=== PATIENT | female | born 1995 ===

== ENCOUNTER 2019-12-11 23:33 | Inpatient (IN) | payer MEDICAID, SELFPAY ==
[2019-12-11 23:05] VITALS: BMI 24.1
[2019-12-11 23:13] LABS: Actim Prom Positive
[2019-12-11 23:32] LABS: Basophils % 0.3 %; Eosinophils # 0.1 10^3/uL (0.0-0.8); Eosinophils % 0.6 %; Hematocrit 35.3 % (37.0-47.0); Lymphocytes % 17.6 %; Mean Corpuscular Hemoglobin 29.1 pg (28.0-34.0); Mean Corpuscular Volume 85.7 fL (81-99); Mean Platelet Volume 9.5 fL (7.4-10.4); Monocytes # 0.7 10^3/uL (0.2-0.9); Monocytes % 6.2 %; Neutrophils # 8.7 10^3/uL (1.8-7.7); Neutrophils % 74.9 %; Nucleated Red Blood Cells % 0 %; Platelet Count 265 10^3/cmm (130-400); Red Blood Count 4.12 10^6/uL (4.1-5.3); Red Cell Distribution Width 12.3 % (12.1-15.1); White Blood Count 11.6 10^3/uL (4.0-10.0)
[2019-12-11 23:37] VITALS: BP 0/0
[2019-12-11] MEDS: dextrose 5%-lactated ringers 1,000 ML 125 ML IV (23:37)
[2019-12-11] MEDS: betamethasone susp 6 mg/mL 5 mL 12 MG IM (23:37)
[2019-12-11 23:38] VITALS: BP 121/80; PULSE 91
[2019-12-11] MEDS: ampicillin 2,000 MG in sodium chloride 0.9% (plus) 50 ML 100 MG IV (23:38)
[2019-12-11] MEDS: NIFEdipine 10 mg Capsule 20 MG PO (23:44)
[2019-12-11 23:54] VITALS: BP 115/78; PULSE 77
[2019-12-12] VITALS (33 sets, daily range): BP systolic 0–120; BP diastolic 0–79; PULSE 76–104; RESP 14–18; TEMP 36.7–36.9
--- NOTE | 2019-12-12 00:27 | P.HP_ITS ---
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 At 8:00 PM the patient had a small gush of clear fluid. She then started having what she presumed to be [place] contractions, then about an hour and a half later had some bloody discharge. She had no fever. She had no other symptoms whatsoever. She presented to the hospital for further evaluation. Her has been otherwise unremarkable. She was positive for trichomonas in her first trimester. That was treated with Flagyl. She also has a history of labors with a previous with a 32-week delivery. 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 She did miss several doses. Present Details : 3 Para: 2 Labs Rubella: Immune RPR: Negative GBS: Unknown Review of Systems General: Reports: 10 or more systems reviewed and unremarkable except in HPI and below Const: Reports: fatigue; Denies: fever Eyes: Denies: change in vision Card: Denies: chest pain : Denies: difficulty urinating or painful urination Musc: Reports: back pain Brady/Lymph: Denies: easy bruising Medications/Allergies Home Medications Medication Instructions Recorded Confirmed Last Taken Type acetaminophen [Tylenol] 325 mg PO QID PRN 12/11/19 12/11/19 12/11/19 20:00 History Allergies Allergy/AdvReac Type Severity Reaction Status Date / Time No Known Drug Allergies Allergy Unknown Verified 12/11/19 23:55 Vitals/I&O/Wt Last Vital Signs Pulse 90 12/12/19 00:20 BP 109/68 12/12/19 00:20 Weight last 48 hrs Weight 145 lb Weight 145 lb Physical Exam Const: COMMON NORMALS: oriented x3 and alert HENMT: COMMON NORMALS: moist oral mucous membranes HEAD & SCALP: normal to inspection Chest: COMMONS NORMALS: inspection of chest normal Resp: COMMON NORMALS: clear to auscultation bilaterally AUSCULTATION: clear to auscultation bilaterally Cardio: COMMON NORMALS: regular rate and regular rhythm RATE: regular rate RHYTHM: regular rhythm GI: INSPECTION: Yes normal to inspection and Yes other (Gravid) Extremity: COMMON NORMALS: normal to inspection GENERAL: Yes edema (Trace) Neuro: COMMON NORMALS: oriented x3, moves all extremities and no sensory deficits noted SENSORIUM/ORIENTATION: Yes alert Psych: COMMON NORMALS: mental status grossly normal Skin: COMMON NORMALS: no rashes or lesions noted GENERAL SKIN EXAM: no rashes or lesions noted Data : 12/11/19 23:27 Other Labs: Patient's glucose screen was 115 her GC and Chlamydia were negative. Her initial urinalysis was positive for trichomonas which was treated with Flagyl. The patient was found to have an abnormal Pap smear with ASCUS. She is also HPV positive. She declined a colposcopy during her . Her drug screen was negative. Her HIV test was also negative. Her hepatitis B and hepatitis C test were both negative. Her rubella test did demonstrate antibodies. Her RPR was negative her blood type is O+. A&P Assessment and plan (1) 33 weeks gestation of : The patient was checked and found to be 3 cm dilated and about 85% effaced. She was found to be active and PROM positive. She is having contractions about every 3 to 4 minutes. She was placed on ampicillin. She was given betamethasone 12 mg. She is also placed on nifedipine 20 mg. We will continue to give her future nifedipine doses at 10 mg every 3 hours. We will try and keep her for 48 hours. If her contractions stopped we may cons ider transfer. Dr. Quesada has been notified that we may have a baby Status: Acute Code(s): Z3A.33 - 33 weeks gestation of (2) Spontaneous rupture of membranes: Status: Acute (3) Uterine contractions: Status: Acute (4) labor: Status: Acute Code(s): O60.00 - labor without delivery, unspecified trimester (5) Premature rupture of membranes: Status: Acute Code(s): O42.90 - Premature rupture of membranes, unspecified as to length of time between rupture and onset of labor, unspecified weeks of gestation Attestations Medical Necessity Statement*: Routine labor and care. The patient may be transferred to depending on her circumstances. Coding Level of Care Code Acute Perfect Bind Machine Operator for Edelmira Downs Diagnoses 33 weeks gestation of Z3A.33 Spontaneous rupture of membranes Uterine contractions labor O60.00 Premature rupture of membranes O42.90
[2019-12-12] MEDS: NIFEdipine 10 mg Capsule PO ×2 (01:18→04:30)
[2019-12-12 01:30] LABS: Add Urine Microscopic? YES; Bacteria Urine TRACE; Bilirubin Urine Neg (NEGATIVE); Blood Urine 3+ (Negative); Glucose Urine UA Norm (Normal); Ketones Urine Negative (Negative); Leukocyte Esterase Urine Negative (Negative); Nitrate Urine Negative (Negative); Protein Urine Neg (Negative); RBC Urine 0-4 /hpf (0-2); Squamous Epithelial Cell Urine 0-4 (0-5); Urine Appearance Clear (CLEAR); Urine Color Yellow (Yellow); Urobilinogen Urine Norm (Negative); WBC Urine 0-4 /hpf (0-5); pH Urine 7 (5-7)
[2019-12-12] MEDS: ampicillin 1,000 MG in sodium chloride 0.9% (plus) 50 ML 100 MG IV (03:39)
--- NOTE | 2019-12-12 03:55 | P.DS_ITS ---
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 Date of Admission: 12/11/19 23:33 Date of Discharge: 12/12/19 Attending Provider at Admission: Bashir Ramos MD Attending Provider at Discharge: Bashir Ramos MD Diagnoses at Discharge Discharge Diagnosis (1) 33 weeks gestation of : Status: Acute (2) Spontaneous rupture of membranes: Status: Acute (3) Uterine contractions: Status: Acute (4) labor: Status: Acute (5) Premature rupture of membranes: Status: Acute Reason for Visit Reason for Visit: Reason For Visit: contractions/ Hospital Course Hospital Course: The patient presented to the hospital complaining of a gush of fluid as well as vaginal bleeding. She was checked and found to be 3 cm dilated 80% effaced with a small amount of blood in the vaginal vault. She was found to be acti PROM positive. She was noted to be tavon about every 5 minutes. She was placed on betamethasone, ampicillin, and nifedipine. She was given an initial dose of 20 mg of nifedipine with 10 mg of nifedipine every 3 hours thereafter. She continued to have contractions about every 5 minutes. She was checked again about 5 hours after admission and found to have no cervical change. As result, I contacted [facility] where I spoke with Dr. Chacko who agreed except the patient. Physical Exam Const: COMMON NORMALS: no apparent distress and oriented x3 GENERAL APPEARANCE: cooperative, comfortable and well developed HENMT: COMMON NORMALS: normocephalic and moist oral mucous membranes HEAD & SCALP: normocephalic Chest: COMMONS NORMALS: inspection of chest normal Resp: COMMON NORMALS: normal respiratory effort and clear to auscultation bilaterally AUSCULTATION: clear to auscultation bilaterally Cardio: COMMON NORMALS: regular rate, regular rhythm, no gallops, no murmurs and no rub RATE: regular rate RHYTHM: regular rhythm Extremity: COMMON NORMALS: normal to inspection Neuro: COMMON NORMALS: oriented x3 and no focal motor deficits Skin: COMMON NORMALS: no rashes or lesions noted GENERAL SKIN EXAM: no rashes or lesions noted Discharge Data Data Completed and Pending: Labs from last 24 hours 12/12/19 12/11/19 12/11/19 01:00 23:27 23:00 WBC 11.6 H RBC 4.12 Hgb 12.0 Hct 35.3 L MCV 85.7 MCH 29.1 MCHC 34.0 RDW 12.3 Plt Count 265 MPV 9.5 Neut % (Auto) 74.9 Lymph % (Auto) 17.6 [place] % (Auto) 6.2 Eos % (Auto) 0.6 Baso % (Auto) 0.3 Neut # (Auto) 8.7 H Lymph # (Auto) 2.0 [place] # (Auto) 0.7 Eos # (Auto) 0.1 Baso # (Auto) 0.0 Nucleated RBC % (a uto) 0 Nucleated RBCs # 0.0 Insulin-like GF I Positive Urine Color Yellow Urine Appearance Clear Urine pH 7 Ur Specific Gravit y 1.010 Urine Protein Neg Urine Glucose (UA) Norm Urine Ketones Negative Urine Blood 3+ H Urine Nitrate Negative Urine Bilirubin Neg Urine Urobilinogen Norm Ur Leukocyte Bina ase Negative Urine RBC 0-4 H Urine WBC 0-4 H Ur Squamous Epith Cells 0-4 H Urine Bacteria Trace Vitals: Last Vital Signs Temp 98.4 F 12/12/19 02:03 Pulse 90 12/12/19 03:51 Resp 14 12/12/19 02:03 BP 118/71 12/12/19 03:51 Discharge Plan Discharge Patient Disposition: Xfer Other Condition: Stable Prescriptions: No Action Tylenol 325 mg Capsule 325 mg PO QID PRN (Reason: Pain) RF: 0 Discharge Orders: Discharge Order (Routine); Ordered 12/12/19 Ordered By: Bashir Ramos Discharge Diet: As Directed Discharge Activity: Bedrest Activity Restrictions/Additional Instructions: Transfer to [facility] labor and delivery under care of Dr. 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
== END 2019-12-12 05:30 | disposition short-term general hospital (02) | DRG 832 ==
LOC: OBGYN 23:35
PROVIDERS: Admitting Provider Family Medicine; Family Provider Family Medicine; Visit Provider Family Medicine
DX: O42.913 Preterm premature rupture of membranes, unspecified as to length of time between rupture and onset of labor, third trimester (principal); O98.32 Other infections with a predominantly sexual mode of transmission complicating childbirth; Z3A.33 33 weeks gestation of pregnancy; A63.0 Anogenital (venereal) warts
CPT/HCPCS: 12345; 36415; 59025; 81001; 84112; 85025; 96372; 99211; J0290; J0702

== ENCOUNTER 2023-10-24 17:37 | Outpatient (CLI) | payer MEDICAID, SELFPAY ==
[2023-10-24 17:51] VITALS: RESP 16; BMI 27.4
[2023-10-24] MEDS: lactated ringers 1,000 ML 999 ML IV (19:00)
[2023-10-24] MEDS: ondansetron 2 mg/ML SDV 2 mL 4 MG IVP (19:01)
[2023-10-24 19:30] LABS: Urine Color Yellow (Yellow)
[2023-10-24 19:31] LABS: Bilirubin Urine Neg (Negative); Blood Urine Neg (Negative); Glucose Urine UA Norm (Normal); Ketones Urine 1+ (Negative); Leukocyte Esterase Urine Negative (Negative); Nitrate Urine Negative (Negative); Protein Urine Trace (Negative); Urine Appearance Clear (CLEAR); Urobilinogen Urine 1 mg/dL (Negative); pH Urine 7 (5-7)
[2023-10-24 19:33] LABS: Add Urine Culture? No; Bacteria Urine TRACE /hpf; Mucus Urine TRACE /hpf; Squamous Epithelial Cell Urine 0-4 /hpf (0-5); WBC Urine RARE /hpf (0-5)
[2023-10-24 20:00] VITALS: BP 109/67; PULSE 81; RESP 18; TEMP 36.6
[2023-10-24 20:05] VITALS: BP 109/67; PULSE 81; RESP 18; TEMP 36.6
== END 2023-10-24 20:09 | disposition home or self-care (01) ==
LOC: OPOB 17:39 → OBGYN 17:40
PROVIDERS: Visit Provider Family Medicine
DX: O21.9 Vomiting of pregnancy, unspecified (principal); Z3A.00 Weeks of gestation of pregnancy not specified; R10.9 Unspecified abdominal pain
CPT/HCPCS: 59025; 81001; 96374; 99211; J2405; J7120

== ENCOUNTER 2023-11-18 14:38 | Outpatient (CLI) | payer MEDICAID, SELFPAY ==
[2023-11-18] VITALS (10 sets, daily range): BP systolic 110–126; BP diastolic 70–83; PULSE 76–106; BMI 28.4
[2023-11-18 16:14] LABS: Bilirubin Urine Neg (Negative); Blood Urine 2+ (Negative); Glucose Urine UA 1+ (Normal); Ketones Urine Negative (Negative); Leukocyte Esterase Urine Negative (Negative); Nitrate Urine Negative (Negative); Protein Urine Neg (Negative); RBC Urine 0-4 /hpf (0-2); Urine Appearance Clear (CLEAR); Urine Color Yellow (Yellow); Urobilinogen Urine Norm (Negative); pH Urine 7 (5-7)
[2023-11-18 16:15] LABS: Add Urine Culture? No; Bacteria Urine TRACE /hpf; Squamous Epithelial Cell Urine 0-4 /hpf (0-5)
== END 2023-11-18 17:23 | disposition home or self-care (01) ==
LOC: OPOB 14:45 → OBGYN 14:46
PROVIDERS: Visit Provider Family Medicine
DX: O26.899 Other specified pregnancy related conditions, unspecified trimester (principal); Z3A.00 Weeks of gestation of pregnancy not specified; R10.9 Unspecified abdominal pain; N89.8 Other specified noninflammatory disorders of vagina
CPT/HCPCS: 59025; 81001; 99211

== ENCOUNTER 2023-11-19 07:27 | Inpatient (IN) | payer MEDICAID, SELFPAY ==
[2023-11-19] VITALS (31 sets, daily range): BP systolic 101–141; BP diastolic 60–108; PULSE 54–187; RESP 15–18; TEMP 36.3–36.7; O2SAT 97–99; BMI 28.6
[2023-11-19 07:28] LABS: Nitrazine Paper, PH Inconclusive
[2023-11-19 07:33] LABS: Actim Prom Positive
[2023-11-19] MEDS: betamethasone susp 6 mg/mL 1 mL (per mL) 12 MG IM (07:49)
[2023-11-19] MEDS: dextrose 5%-lactated ringers 1,000 ML 125 ML IV (07:52)
[2023-11-19] MEDS: ampicillin 2,000 MG in sodium chloride 0.9% (plus) 50 ML 100 MG IV (07:52)
--- NOTE | 2023-11-19 08:02 | P.HP_ITS ---
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 She presented to the hospital this morning complaining of contractions, some vaginal bleeding and what she felt was rupture membranes. Upon arrival she was checked and found to be 5 cm dilated. She is also noted to have fragmented bloody show in the vaginal vault. An active problem is pending at this time. Her has been relatively unremarkable. She does have a history of labor. Otherwise her has been relatively unremarkable. Present Details : 4 Para: 3 Review of Systems 2 General: Reports: 10 or more systems reviewed and unremarkable except in HPI and below Const: Reports: fatigue; Denies: fever(s) Eyes: Denies: change in vision Card: Denies: chest pain Musc: Reports: back pain Brady/Lymph: Denies: easy bruising Medications/Allergies Home Medications Medication Instructions Recorded Confirmed Last Taken Type acetaminophen 325 mg capsule 325 mg PO QID PRN Pain 12/11/19 11/20/23 12/11/19 20:00 History (Tylenol) [id number] 1 mg 1 tab PO DAILY 10/24/23 11/20/23 Unknown History tablet ibuprofen 800 mg tablet 800 mg PO TID #45 tabs 11/21/23 Unknown Rx Allergies Allergy/AdvReac Type Severity Reaction Status Date / Time No Known Drug Allergies Allergy Unknown Verified 11/20/23 20:53 Vitals/I&O/Wt Last Vital Signs Pulse 93 11/19/23 06:50 BP 134/77 11/19/23 06:50 Weight last 48 hrs Weight 172 lb Physical Exam 2 Const: COMMON NORMALS: patient oriented x3 and alert HENMT: COMMON NORMALS: moist oral mucous membranes HEAD & SCALP: normal to inspection Chest: COMMONS NORMALS: normal inspection of the chest Resp: COMMON NORMALS: clear to auscultation bilaterally AUSCULTATION: clear to auscultation bilaterally Cardio: COMMON NORMALS: regular rate and regular rhythm RATE: regular rate RHYTHM: regular rhythm GI: INSPECTION: Yes normal to inspection and Yes other (Gravid) Extremity: COMMON NORMALS: normal to inspection GENERAL: Yes edema (Trace) Neuro: COMMON NORMALS: patient oriented x3, moves all extremities and no sensory deficits noted SENSORIUM/ORIENTATION: Yes alert Psych: COMMON NORMALS: mental status grossly normal Skin: COMMON NORMALS: no rashes or lesions noted GENERAL SKIN EXAM: no rashes or lesions noted Data 11/19/23 17:40 Results Labs OB ([facility]): 2 Obstetrics US 09/17/23 Blood Type O Positive 11/19/23 Antibody Screen Negative 11/19/23 Hct 32.3 % (36-47) L 11/19/23 Hgb 11.00 g/dL (11.27-16.99) L 11/19/23 Rho(D) Type Rh positive 11/19/23 Plt Count 268 10^3/cmm (157-399) 11/19/23 Ser , Semi-Qnt 581897.00 mIU/mL 06/19/19 A&P Assessment and plan (1) 35 weeks gestation of : Betamethasone and will be show protocol been initiated. (2) Active labor: Attestations 2 Medical Necessity Statement*: I anticipate labor and delivery. Since the patient is 35 weeks, and the patient is now 5 cm dilated we will manage the labor here. Coding Level of Care Code Acute Code for Chg Fwd Diagnoses 35 weeks gestation of Z3A.35 Active labor
[2023-11-19 08:16] LABS: Basophils % 0.2 %; Eosinophils # 0.1 10^3/uL (0.0-0.8); Lymphocytes # 1.7 10^3/uL (0.8-4.8); Lymphocytes % 12.8 %; Mean Corpuscular HGB Conc 33.9 g/dL (30-55); Mean Corpuscular Hemoglobin 29.5 pg (27-33); Mean Platelet Volume 9.6 fL (7.4-10.4); Monocytes # 0.8 10^3/uL (0.2-0.9); Monocytes % 5.8 %; Neutrophils # 10.35 10^3/uL (1.8-7.7); Neutrophils % 79.8 %; Nucleated Red Blood Cells % 0 %; Platelet Count 256 10^3/cmm (157-399); Red Blood Count 4.37 10^6/uL (3.85-5.65); Red Cell Distribution Width 12.4 % (12.1-15.1); White Blood Count 12.97 10^3/uL (3.29-11.43)
[2023-11-19] MEDS: fentaNYL 50 mcg/mL INJ 2mL IVP (09:05)
[2023-11-19] MEDS: oxytocin 30 UNIT/500 ML BAG 600 UNIT IV (11:14)
--- NOTE | 2023-11-19 11:32 | PM.DELIVERY ---
Delivery Note: Date of delivery: November 19, 2023 Pre-delivery diagnoses: 28-year-old 35-week female presenting in active labor Post-delivery diagnoses: Status post spontaneous vaginal delivery Procedure: Spontaneous vaginal delivery Delivering Physician: Bashir Ramos Estimated blood loss (mL): 400 Pre-Delivery Course: The patient presented to the hospital in active labor. There is a question whether she ruptured membranes, but she was 5 cm dilated 90% effaced and tavon consistently. She was given betamethasone. She was placed on GBS protocol. She began having some relatively heavy bleeding prior to delivery. As a result I chose to perform an amniotomy to hasten her delivery. She then progressed to complete without difficulty. I anticipate there was 300 cc of blood loss prior to delivery. Delivery: DELIVERY: The patient progressed to complete without difficulty. She delivered a male with a weight of 5 pounds 8 ounces with Apgars of 9, 9. The baby was delivered from the ROP position and placed on the mother's abdomen. The cord was then clamped and cut. There was no nuchal cord. There was no meconium. The placenta and 3 vessel cord were delivered intact shortly thereafter. The perineum and vaginal vault were carefully examined. No lacerations were noted. Both the mother and the baby were in stable condition. A&P Assessment and plan (1) Spontaneous vaginal delivery: The patient had minimal bleeding after the delivery of the placenta. I anticipate routine care. Coding Level of Care Code Acute Code for Chg Fwd Diagnoses Spontaneous vaginal delivery O80
[2023-11-19] MEDS: ibuprofen 800 mg tablet PO ×2 (14:43→19:53)
[2023-11-19] MEDS: benzocaine-menthol 78 gm Canister 1 SPRAY TOPICAL (14:43)
[2023-11-19] MEDS: lanolin oint 7 gm 1 APPLIC TOPICAL (14:43)
[2023-11-19 17:53] LABS: Hematocrit 32.3 % (36-47); Mean Corpuscular HGB Conc 34.1 g/dL (30-55); Mean Corpuscular Hemoglobin 29.3 pg (27-33); Mean Corpuscular Volume 86.1 fl (85-98); Mean Platelet Volume 9.8 fL (7.4-10.4); Platelet Count 268 10^3/cmm (157-399); Red Blood Count 3.75 10^6/uL (3.85-5.65); Red Cell Distribution Width 12.5 % (12.1-15.1); White Blood Count 19.58 10^3/uL (3.29-11.43)
[2023-11-19] MEDS: docusate sodium 100 mg Capsule PO (19:54)
[2023-11-20 01:19] VITALS: BP 104/70; PULSE 87; RESP 15; TEMP 36.8; O2SAT 98
[2023-11-20 04:43] VITALS: BP 102/71; PULSE 90; RESP 16; TEMP 36.6; TEMP 36.7
--- NOTE | 2023-11-20 08:11 | P.PN_ITS ---
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 She is breast-feeding well. There is minimal bleeding. Her pain is well-controlled. Labor: Station: +1 Amniotic Membrane Status: Ruptured Monitor Mode: Palpation Contraction Pattern: Regular Status: Category I Vitals/I&O/Wt Last Vital Signs Temp 98.0 F 11/20/23 04:43 Pulse 90 11/20/23 04:43 Resp 16 11/20/23 04:43 BP 102/71 11/20/23 04:43 Pulse Ox 98 11/20/23 01:19 O2 Del Method Room Air 11/20/23 04:43 11/19/23 11/20/23 11/20/23 22:59 06:59 14:59 Output Total 300 / 300 Balance -300 / 891.667 Weight last 48 hrs Weight 172 lb Physical Exam 2 Narrative: The patient is alert. She appears comfortable. Her heart has a regular rate and rhythm with no murmurs appreciated. Lungs are clear to auscultation bilaterally. Her fundus is firm and below the umbilicus. Data 11/19/23 17:40 A&P Assessment and plan (1) Spontaneous vaginal delivery: Anticipate routine care. The patient will likely be discharged with her baby tomorrow. (2) 35 weeks gestation of : Attestations 2 Medical Necessity Statement*: Routine care Coding Level of Care Code Acute Code for Chg Fwd Diagnoses Spontaneous vaginal delivery O80 35 weeks gestation of Z3A.35
[2023-11-20] MEDS: prenatal vitamin Capsule 1 CAP PO (09:39)
[2023-11-20] MEDS: docusate sodium 100 mg Capsule PO ×2 (09:39→20:58)
[2023-11-20] MEDS: ibuprofen 800 mg tablet PO ×3 (09:39→20:58)
[2023-11-20 09:43] VITALS: BP 108/69; PULSE 97; RESP 16; TEMP 36.8; O2SAT 97
[2023-11-20 16:15] VITALS: BP 111/63; PULSE 92; RESP 17; TEMP 36.6; TEMP 36.7; O2SAT 97
[2023-11-20 21:14] VITALS: BP 108/71; PULSE 81; RESP 16; TEMP 36.6; O2SAT 97
[2023-11-21 04:00] VITALS: BP 97/64; PULSE 78; RESP 14; TEMP 36.7; O2SAT 98
[2023-11-21] MEDS: ibuprofen 800 mg tablet PO (09:15)
[2023-11-21] MEDS: prenatal vitamin Capsule 1 CAP PO (09:15)
[2023-11-21] MEDS: docusate sodium 100 mg Capsule PO (09:15)
[2023-11-21 09:20] VITALS: BP 100/64; PULSE 78; RESP 16; TEMP 36.6
--- NOTE | 2023-11-21 11:00 | P.DS_ITS ---
Discharge Providers WIRELINE OPERATOR Date of Admission: 11/19/23 07:27 Date of Discharge: 11/21/23 Attending Provider at Admission: Bashir Ramos MD Attending Provider at Discharge: Bashir Ramos MD Primary Care Provider: Bashir Ramos MD Diagnoses at Discharge Discharge Diagnosis (1) Spontaneous vaginal delivery: Status: Acute (2) 35 weeks gestation of : Status: Acute Reason for Visit Reason for Visit: poss srom, bleeding, contractions Information Peripartum Data: Infant Delivery Method: Vaginal Physical Exam Narrative: The patient is alert. She appears comfortable. Her heart has a regular rate and rhythm with no murmurs appreciated. Lungs are clear to auscultation bilaterally. Her fundus is firm and below the umbilicus. Discharge Data Studies Completed and Pending Laboratory Results WBC 19.58 10^3/uL (3.29-11.43) H 11/19/23 17:40 RBC 3.75 10^6/uL (3.85-5.65) L 11/19/23 17:40 Hgb 11.00 g/dL (11.27-16.99) L 11/19/23 17:40 Hct 32.3 % (36-47) L 11/19/23 17:40 MCV 86.1 fl (85-98) 11/19/23 17:40 MCH 29.3 pg (27-33) 11/19/23 17:40 MCHC 34.1 g/dL (30-55) 11/19/23 17:40 RDW 12.5 % (12.1-15.1) 11/19/23 17:40 Plt Count 268 10^3/cmm (157-399) 11/19/23 17:40 MPV 9.8 fL (7.4-10.4) 11/19/23 17:40 Neut % (Auto) 79.8 % 11/19/23 07:44 Lymph % (Auto) 12.8 % 11/19/23 07:44 [place] % (Auto) 5.8 % 11/19/23 07:44 Eos % (Auto) 1.0 % 11/19/23 07:44 Baso % (Auto) 0.2 % 11/19/23 07:44 Neut # (Auto) 10.35 10^3/uL (1.8-7.7) H 11/19/23 07:44 Lymph # (Auto) 1.7 10^3/uL (0.8-4.8) 11/19/23 07:44 [place] # (Auto) 0.8 10^3/uL (0.2-0.9) 11/19/23 07:44 Eos # (Auto) 0.1 10^3/uL (0.0-0.8) 11/19/23 07:44 Baso # (Auto) 0.0 10^3/uL (0.0-0.1) 11/19/23 07:44 Nucleated RBC % (auto) 0 % 11/19/23 07:44 Nucleated RBCs # 0.0 /100WBC 11/19/23 07:44 Insulin-like GF I Positive 11/19/23 07:08 Fluid pH (paper) Inconclusive 11/19/23 07:07 Blood Type O Positive 11/19/23 07:44 Rho(D) Type Rh positive 11/19/23 07:44 Antibody Screen Negative 11/19/23 07:44 Vitals Last Vital Signs Temp 97.9 F 11/21/23 09:20 Pulse 78 11/21/23 09:20 Resp 16 11/21/23 09:20 BP 100/64 11/21/23 09:20 Pulse Ox 98 11/21/23 04:00 O2 Del Method Room Air 11/21/23 09:20 Results Labs OB ([facility]): Obstetrics US 09/17/23 Blood Type O Positive 11/19/23 Antibody Screen Negative 11/19/23 Hct 32.3 % (36-47) L 11/19/23 Hgb 11.00 g/dL (11.27-16.99) L 11/19/23 Rho(D) Type Rh positive 11/19/23 Plt Count 268 10^3/cmm (157-399) 11/19/23 Ser , Semi-Qnt [id number] mIU/mL 06/19/19 Discharge Plan Discharge Patient Disposition: Home Condition: Stable Prescriptions: New ibuprofen 800 mg Tablet 800 mg PO TID Qty: 45 0RF Continued acetaminophen [Tylenol] 325 mg Capsule 325 mg PO QID PRN (Reason: Pain) 1 mg Tablet 1 tab PO DAILY Discharge Orders: Discharge Order (Routine); Ordered 11/21/23 Ordered By: Bashir Ramos Referrals: Bashir Ramos MD [Primary Care Provider] - 6 Weeks Discharge Diet: Usual diet Discharge Activity: Limit activity as instructed Patient Instructions: Opioid Safety Discharge Attestations WIRELINE OPERATOR Time Spent in Discharge Care*: less than 30 min Coding Level of Care Code Acute Code for Chg Fwd Diagnoses Spontaneous vaginal delivery O80 35 weeks gestation of Z3A.35
[2023-11-21 12:25] VITALS: BP 104/64; PULSE 72; RESP 16; TEMP 36.4
== END 2023-11-21 12:55 | disposition home or self-care (01) | DRG 807 ==
LOC: OPOB 07:27 → OBGYN 07:27
PROVIDERS: Admitting Provider Family Medicine; PCP Family Medicine; Visit Provider Family Medicine
DX: O60.14X0 Preterm labor third trimester with preterm delivery third trimester, not applicable or unspecified (principal); Z37.0 Single live birth; Z3A.35 35 weeks gestation of pregnancy
CPT/HCPCS: 36415; 59025; 59409; 83986; 84112; 85025; 85027; 86850; 86900; 96372; 96374; 98960; 99211; J0290; J0702; J2590; J3010; J7121